=== PATIENT | female | born 1995 | race Caucasian/White ===

== ENCOUNTER 2016-12-27 00:02 | Emergency (ER) | payer SELFPAY ==
[~2016-12-27] VITALS: Ht 180.3 cm; Wt 53.3 kg
[~2016-12-27 00:02] MED LIST: HYDR-3240 PO; METH4TAB2 PO; TRAZ100T15 PO
[2016-12-27] MEDS ORDERED: CLINDAMYCIN PMX 900MG/50ML 50 ML IV ONE (00:30)
[2016-12-27] MEDS ORDERED: SODIUM CHLORIDE 0.9% 1,000ML IVBOLUS ONE (00:30)
[2016-12-27] MEDS ORDERED: SODIUM CHLORIDE FLUSH 10ML SYR IVF ONE (00:30)
[2016-12-27 00:58] LABS: BLOOD UREA NITROGEN 17 mg/dL (7-18)
[2016-12-27] MEDS ORDERED: ONDANSETRON 2MG/ML, 2ML IVPush ONE (01:00)
[2016-12-27] MEDS ORDERED: HYDROmorphone 1 MG/ML, 1ML IV ONE (01:00)
[2016-12-27] MEDS ORDERED: ONDANSETRON 2MG/ML, 2ML ONE (01:09)
[2016-12-27] MEDS ORDERED: HYDROmorphone 1 MG/ML, 1ML ONE (01:09)
[2016-12-27] MEDS ORDERED: CLINDAMYCIN PMX 600MG/50ML 50 ML ONE (01:09)
[2016-12-27] MEDS ORDERED: LIDOCAINE 1%, 20ML SQ ONE (01:30)
[2016-12-27] MEDS ORDERED: BUPIVACAINE 0.25% INFIL ONE (01:30)
[2016-12-27] MEDS ORDERED: PROPOFOL 10 MG/ML, 20ML IVPush ONE (01:30)
[2016-12-27] MEDS ORDERED: PROPOFOL 10 MG/ML, 20ML ONE (01:33)
[2016-12-27] MEDS ORDERED: BUPIVACAINE 0.25% ONE (01:47)
[2016-12-27] MEDS ORDERED: LIDOCAINE 1%, 20ML ONE (01:47)
[2016-12-27] MEDS ORDERED: KETAMINE 10 MG/ML, 20ML ONE (01:59)
[2016-12-27] MEDS ORDERED: CLINDAMYCIN PMX 900MG/50ML 50 ML ONE (02:14)
[2016-12-27 02:48] VITALS: BP 106/73
== END 2016-12-27 04:22 | disposition home or self-care (01) ==
LOC: ED 01:39
DX: N61.1 Abscess of the breast and nipple (principal); Z88.8 Allergy status to other drugs, medicaments and biological substances
CPT/HCPCS: 10160; 36415; 76642; 80048; 85025; 87070; 87077; 87186; 87205; 96361; 96365; 96375; 99152; 99153; 99285; J1170; J2405; J2704; J3490; J7030

== ENCOUNTER 2016-12-28 20:59 | Emergency (ER) | payer SELFPAY ==
[~2016-12-28] VITALS: Ht 180.3 cm; Wt 54.6 kg
[2016-12-28 21:03] VITALS: BP 138/84
== END 2016-12-28 22:13 | disposition home or self-care (01) ==
LOC: ED 22:07
DX: N61.1 Abscess of the breast and nipple (principal); G40.909 Epilepsy, unspecified, not intractable, without status epilepticus; F15.10 Other stimulant abuse, uncomplicated
CPT/HCPCS: 99284

== ENCOUNTER 2018-03-07 00:28 | Emergency (ER) | payer SELFPAY ==
[~2018-03-07] VITALS: Ht 180.3 cm; Wt 54.4 kg
[~2018-03-07 00:28] MED LIST changes: +TRAZ-137 PO; -TRAZ100T15 PO
[2018-03-07 00:36] VITALS: BP 126/79
== END 2018-03-07 04:50 | disposition home or self-care (01) ==
LOC: ED 01:03
DX: G89.11 Acute pain due to trauma (principal); M25.572 Pain in left ankle and joints of left foot
CPT/HCPCS: 99284